=== PATIENT | male | born 1980 | race Hispanic/Latino ===

== ENCOUNTER 2018-06-09 11:26 | Inpatient (IN) | payer OTHER ==
[~2018-06-09] VITALS: Ht 172.7 cm; Wt 82.3 kg
[2018-06-09 11:36] LABS: BASOPHIL (%) 0.6 % (0-1); BASOPHIL COUNT 0.1 K/uL (0-0.1); EOSINOPHIL (%) 1.3 % (0-5); EOSINOPHIL COUNT 0.1 K/uL (0-0.3); HEMATOCRIT 38.6 % (38.0-50.0); HEMOGLOBIN 13.3 G/DL (12.5-16.6); IMMATURE GRANULOCYTE (%) 1.2 % (0.0-0.7); LYMPHOCYTE (%) 35.6 % (15-42); LYMPHOCYTE COUNT 3.2 K/uL (1.0-2.8); MCHC 34.5 G/DL (30.0-36.0); MCV 87.1 FL (86-99); MONOCYTE (%) 6.5 % (3-12); MONOCYTE COUNT 0.6 K/uL (0-0.8); NEUTROPHIL (%) 54.8 % (45-76); NEUTROPHIL COUNT 4.9 K/uL (1.8-6.4); PLATELET COUNT 209 K/uL (156-360); RBC DIS.WIDTH-CV 12.2 % (11.8-14.6); RBC DIS.WIDTH-SD 39.2 % (39-53); RED BLOOD COUNT 4.43 M/uL (4.00-5.50); WHITE BLOOD COUNT 8.9 K/uL (4.1-10.2)
[2018-06-09 11:53] LABS: AMYLASE 83 IU/L (1-118); CHLORIDE 106 mEq/L (99-109); POTASSIUM 4.2 mEq/L (3.7-5.4); SODIUM 141 mEq/L (136-147)
[2018-06-09 11:54] LABS: GLUCOSE 122 mg/dL (70-99)
[2018-06-09 11:57] LABS: SERUM ETHYL ALCOHOL < 10 mg/dL
[2018-06-09 11:58] LABS: CREATININE 1.1 mg/dL (0.6-1.3)
[2018-06-09 11:59] LABS: UREA NITROGEN (BUN) 16 mg/dL (9-23)
[2018-06-09 12:01] LABS: LIPASE 45 U/L (1.0-51.0)
[2018-06-09 12:03] LABS: GFR ESTIMATE (CALCULATED) > 59 mL/min/ (58.99-99999)
[2018-06-09] MEDS ORDERED: ADVIL200 MG PO (14:47)
[2018-06-09] MEDS ORDERED: MOTRIN400 MG PO (14:47)
[2018-06-09] MEDS ORDERED: DAILY VITE1 EAC1 PO (14:47)
[2018-06-09] MEDS ORDERED: ASCORBIC ACID100 MG PO (14:48)
[2018-06-09 15:40] VITALS: BP 109/70
[2018-06-09 16:59] LABS: APPEARANCE CLEAR ((CLEAR)); BILIRUBIN NEGATIVE; BLOOD NEGATIVE; COLOR YELLOW ((YELLOW)); GLUCOSE (STRIP) NEGATIVE; KETONES 5; LEUKOCYTES NEGATIVE; NITRITE NEGATIVE; PROTEIN (STRIP) NEGATIVE; SPECIFIC GRAVITY 1.058 (1.000-1.030); UCUL ADDED? NO; UROBILINOGEN 0.2 MG/DL (0.2-1.0)
[2018-06-09 17:43] LABS: AMPHETAMINE NEGATIVE (500 ng/mL); BARBITURATES NEGATIVE (200 ng/mL); BENZODIAZEPINES PRESUMPTIVE POSITIVE (150 ng/mL); BUPRENORPHINE NEGATIVE (10 ng/mL); COCAINE NEGATIVE (150 ng/mL); METHADONE NEGATIVE (200 ng/mL); METHAMPHETAMINE NEGATIVE (500 ng/mL); OPIATES (MORPHINE) PRESUMPTIVE POSITIVE (100 ng/mL); OXYCODONE NEGATIVE (100 ng/mL); PHENCYCLIDINE NEGATIVE (25 ng/mL); PROPOXYPHENE NEGATIVE (300 ng/mL); THC CANNABINOIDS NEGATIVE (50 ng/mL); TRICYCLIC ANTIDEPRESSANTS NEGATIVE (300 ng/mL)
[2018-06-09 18:18] LABS: BENZODIAZEPINES, URINE SCREEN POSITIVE (200 ng/mL)
[2018-06-09 23:29] VITALS: BP 110/70
[2018-06-10 03:18] VITALS: BP 117/64
[2018-06-10 05:23] LABS: HEMATOCRIT 32.5 % (38.0-50.0); MCH 29.4 PG (29.0-34.0); MCHC 33.5 G/DL (30.0-36.0); MCV 87.6 FL (86-99); PLATELET COUNT 174 K/uL (156-360); RBC DIS.WIDTH-CV 12.7 % (11.8-14.6); RBC DIS.WIDTH-SD 40.6 % (39-53); RED BLOOD COUNT 3.71 M/uL (4.00-5.50); WHITE BLOOD COUNT 10.5 K/uL (4.1-10.2)
[2018-06-10 05:26] LABS: HEMOGLOBIN 10.9 G/DL (12.5-16.6)
[2018-06-10 06:03] LABS: ALBUMIN 3.6 G/DL (3.2-4.8); ALKALINE PHOSPHATASE 58 IU/L (3-129); ALT (GPT) 45 IU/L (3-49); AST (GOT) 34 IU/L (2-34); CHLORIDE 104 MEQ/L (99-109); GFR ESTIMATE (CALCULATED) > 59 mL/min/ (58.99-99999); GLUCOSE 119 mg/dL (70-99); POTASSIUM 3.9 MEQ/L (3.7-5.4); SODIUM 140 MEQ/L (136-147); TOTAL BILIRUBIN 0.8 MG/DL (0.0-1.0); TOTAL PROTEIN 5.9 G/DL (6.4-8.3); UREA NITROGEN (BUN) 13 mg/dL (9-23)
[2018-06-10 07:24] VITALS: BP 116/67
[2018-06-10 12:00] VITALS: BP 122/70
[2018-06-10 15:26] VITALS: BP 144/78
[2018-06-10 19:47] VITALS: BP 149/91
[2018-06-10 23:28] VITALS: BP 127/92
[2018-06-11 04:00] VITALS: BP 129/85
[2018-06-11 08:03] VITALS: BP 138/80
[2018-06-11 12:13] VITALS: BP 134/76
[2018-06-11 16:38] VITALS: BP 155/98
[2018-06-11 19:28] VITALS: BP 151/94
[2018-06-11 23:14] VITALS: BP 152/95
[2018-06-12 04:00] VITALS: BP 132/85
[2018-06-12 08:02] VITALS: BP 146/72
[2018-06-12 11:22] VITALS: BP 144/71
[2018-06-12 15:52] VITALS: BP 130/83
[2018-06-12 19:28] VITALS: BP 146/81
[2018-06-12 23:42] VITALS: BP 128/83
[2018-06-13 04:10] VITALS: BP 119/81
[2018-06-13 08:12] VITALS: BP 143/98
[2018-06-13 11:18] VITALS: BP 145/84
[2018-06-13 16:28] VITALS: BP 138/90
[2018-06-13 19:11] VITALS: BP 146/87
[2018-06-13 23:06] VITALS: BP 144/83
[2018-06-14] VITALS (7 sets, daily range): BP systolic 131–142; BP diastolic 74–93
[2018-06-14 07:34] LABS: HEMATOCRIT 34.3 % (38.0-50.0); HEMOGLOBIN 11.4 G/DL (12.5-16.6); MCH 29.4 PG (29.0-34.0); MCHC 33.2 G/DL (30.0-36.0); MCV 88.4 FL (86-99); RBC DIS.WIDTH-CV 12.3 % (11.8-14.6); RBC DIS.WIDTH-SD 39.2 % (39-53); RED BLOOD COUNT 3.88 M/uL (4.00-5.50); WHITE BLOOD COUNT 6.4 K/uL (4.1-10.2)
[2018-06-14 07:40] LABS: PLATELET COUNT 270 K/uL (156-360)
[2018-06-14 07:54] LABS: CHLORIDE 98 MEQ/L (99-109); CREATININE 0.7 MG/DL (0.6-1.3); GFR ESTIMATE (CALCULATED) > 59 mL/min/ (58.99-99999); GLUCOSE 97 mg/dL (70-99); POTASSIUM 4.3 MEQ/L (3.7-5.4); SODIUM 135 MEQ/L (136-147); UREA NITROGEN (BUN) 12 mg/dL (9-23)
[2018-06-15 07:50] VITALS: BP 131/87
[2018-06-15] MEDS ORDERED: OXYCODONE HCL5 MG PO (11:23)
[2018-06-15] MEDS ORDERED: FENTANYL1 EAC5 TD (11:23)
[2018-06-15] MEDS ORDERED: ONDANSETRON ODT4 MG PO (11:23)
[2018-06-15 16:10] VITALS: BP 137/98
[2018-06-15 23:52] VITALS: BP 134/79
[2018-06-16 07:30] VITALS: BP 138/81
[2018-06-16 11:37] VITALS: BP 148/94
[2018-06-16 15:52] VITALS: BP 140/90
== END 2018-06-16 19:27 | DRG 552 ==
LOC: TRA 11:26 → EDOF 13:27 → 3EAST 13:27 → ENRESERV 14:45 → 3EAST 15:40 → ENRESERV 15:55 → 3EAST 06-16 19:27
PROVIDERS: Emergency Medicine; Physician Assistant Surgical; Surgery
PROC: 0T9B70Z Drainage of Bladder with Drainage Device, Via Natural or Artificial Opening (ICD-10-PCS; principal; 2018-06-09)
DX: S32.130A Nondisplaced Zone III fracture of sacrum, initial encounter for closed fracture (principal); S32.011A Stable burst fracture of first lumbar vertebra, initial encounter for closed fracture; S50.02XA Contusion of left elbow, initial encounter; S34.22XA Injury of nerve root of sacral spine, initial encounter; W11.XXXA Fall on and from ladder, initial encounter; Y92.254 Theater (live) as the place of occurrence of the external cause; Y93.H3 Activity, building and construction; Y99.0 Civilian activity done for income or pay; R33.9 Retention of urine, unspecified; M48.061 Spinal stenosis, lumbar region without neurogenic claudication; K56.7 Ileus, unspecified; G89.29 Other chronic pain
CPT/HCPCS: 70450; 71260; 72100; 72125; 72129; 72132; 72148; 72195; 73070; 73630; 74177; 76870; 80048; 80053; 81003; 82150; 83690; 84999; 85025; 85027; 86850; 86900; 86901; 94799; 97530 GO; 99281; 99285; G0480; J1170; J1644; J1885; J2270; J2405; J7050; J7120